=== PATIENT | female | born 1995 | race Caucasian/White ===

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

== ENCOUNTER 2018-06-23 20:48 | Emergency (ER) | payer OTHER ==
[~2018-06-23] VITALS: Ht 180.3 cm; Wt 102.5 kg
[2018-06-23 21:30] VITALS: BP_SYST 140
--- NOTE | 2018-06-23 21:35 | NUR ---
Patient triaged and placed in waiting room. VSS and patient appears in no acute distress at this time. Accompanied by mother, awaiting available bed, and MD notified of need for MSE.
--- NOTE | 2018-06-23 21:40 | NUR ---
Patient reports that rash is painful and maher and also c/o itch. No new laundry products, no new soaps, no changes in diet.
--- NOTE | 2018-06-23 21:45 | NUR ---
ER at bedside examining patient.
--- NOTE | 2018-06-23 21:50 | NUR ---
Pt came to the ED with complaints of rash for 2 days. Reports rash is across her ABD. Pain is 3/10. Used hydrocortisone cream and Tylenol with minimal relief. Reports she is on ABX for a yeast infection. Denies fever, chills, nausea, vomiting, SOB. No other complaints/injuries noted. Will cont. to monitor.
--- NOTE | 2018-06-23 22:00 | NUR ---
Pt resting comfortably in bed with Mom at bedside.
[2018-06-23] MEDS ORDERED: KETOROLAC TROMETHAMINE 60 MG/2 ML VIAL IM ONE (22:45)
[2018-06-23 23:02] VITALS: BP_SYST 140
--- NOTE | 2018-06-23 23:02 | NUR ---
Patient given written and verbal discharge instructions and verbalizes understanding. ER MD Dr. Woo discussed with patient the results and treatment provided. Patient in stable condition. ID arm band removed. Rx of zovirax, acyclovir, tramadol and motrin given. Patient educated on pain management and to follow up with PMD. Pain Scale 0/10. Opportunity for questions provided and answered. Medication side effect fact sheet provided.
== END 2018-06-23 23:02 | disposition home or self-care (01) ==
LOC: SED 20:48
DX: B02.9 Zoster without complications (principal)
CPT/HCPCS: 96372; 99283; J1885

== ENCOUNTER 2018-11-09 18:23 | Emergency (ER) | payer OTHER ==
[~2018-11-09] VITALS: Ht 177.8 cm; Wt 97.1 kg
[2018-11-09 19:56] VITALS: BP_SYST 121
[2018-11-10 00:45] VITALS: BP_SYST 124
== END 2018-11-10 00:45 | disposition home or self-care (01) ==
LOC: SED 18:23
DX: A38.9 Scarlet fever, uncomplicated (principal)
CPT/HCPCS: 99283

== ENCOUNTER 2018-11-12 09:10 | Emergency (ER) | payer OTHER ==
[~2018-11-12] VITALS: Ht 177.8 cm; Wt 97.5 kg
[2018-11-12 09:16] VITALS: BP_SYST 118
--- NOTE | 2018-11-12 09:22 | NUR ---
Patient to ER bed 3 to gown for evaluation. Side rails up. Report given to Enma LORENZO.
--- NOTE | 2018-11-12 09:29 | NUR ---
Pt arrives with a generaized bright red rash. Pt reports being treated with PCN for scarlet fever. Stated that the rash became worse after taking the PCN. No other c/o at the moment.
--- NOTE | 2018-11-12 09:32 | NUR ---
ER at bedside examining patient.
[2018-11-12 10:10] VITALS: BP_SYST 118
--- NOTE | 2018-11-12 10:11 | NUR ---
Patient given written and verbal discharge instructions and verbalizes understanding. ER MD discussed with patient the results and treatment provided. Patient in stable condition. ID arm band removed. IV catheter removed intact and dressing applied, no active bleeding. Rx of Zithromax and Atarax given. Patient educated on pain management and to follow up with PMD. Pain Scale 0/10 . Opportunity for questions provided and answered. Medication side effect fact sheet provided. Addendum: 11/12/18 at 1012 by [email or web address] rx for Prednisone also given.
== END 2018-11-12 10:11 | disposition home or self-care (01) ==
LOC: SED 09:10
DX: L27.0 Generalized skin eruption due to drugs and medicaments taken internally (principal)
CPT/HCPCS: 99283

== ENCOUNTER 2020-12-15 17:16 | Observation (INO) | payer OTHER ==
[~2020-12-15] VITALS: Ht 180.3 cm; Wt 97.5 kg
== END 2020-12-15 19:15 | disposition home or self-care (01) ==
LOC: SPU 17:16
PROVIDERS: ADMIT Specialist; ATTEND Specialist
DX: O26.893 Other specified pregnancy related conditions, third trimester (principal); R10.9 Unspecified abdominal pain; O36.8130 Decreased fetal movements, third trimester, not applicable or unspecified; Z3A.30 30 weeks gestation of pregnancy; Z88.0 Allergy status to penicillin; Z79.899 Other long term (current) drug therapy
CPT/HCPCS: 76819; G0378; 59025

== ENCOUNTER 2021-01-01 10:54 | Observation (INO) | payer OTHER ==
[~2021-01-01] VITALS: Ht 180.3 cm; Wt 114.3 kg
[2021-01-01 11:01] VITALS: BP_SYST 130
[2021-01-01] MEDS ORDERED: ACETAMINOPHEN 325 MG TABLET PO ONE ×2 (11:15→16:30)
[2021-01-01 11:29] VITALS: BP_SYST 117
== END 2021-01-01 18:45 | disposition home or self-care (01) ==
LOC: EDSTATUS 10:54 → SED 10:54 → EDSTATUS 12:04 → SPU 12:14
PROVIDERS: ADMIT Specialist; ATTEND Specialist
DX: O9A.213 Injury, poisoning and certain other consequences of external causes complicating pregnancy, third trimester (principal); S09.90XA Unspecified injury of head, initial encounter; S30.0XXA Contusion of lower back and pelvis, initial encounter; O36.8130 Decreased fetal movements, third trimester, not applicable or unspecified; Z3A.33 33 weeks gestation of pregnancy; Z88.0 Allergy status to penicillin; W01.10XA Fall on same level from slipping, tripping and stumbling with subsequent striking against unspecified object, initial encounter; Y93.E1 Activity, personal bathing and showering; Y92.89 Other specified places as the place of occurrence of the external cause
CPT/HCPCS: 99284; G0378

== ENCOUNTER 2021-01-28 13:16 | Observation (INO) | payer OTHER ==
[~2021-01-28] VITALS: Ht 180.3 cm; Wt 117.0 kg
== END 2021-01-28 14:24 | disposition home or self-care (01) ==
LOC: SPU 13:16 → UNDOADMOB 13:16
PROVIDERS: ADMIT Specialist; ATTEND Specialist
DX: O36.8130 Decreased fetal movements, third trimester, not applicable or unspecified (principal); Z3A.37 37 weeks gestation of pregnancy; Z88.0 Allergy status to penicillin
CPT/HCPCS: 59025; 81002; G0378

== ENCOUNTER 2021-01-31 15:17 | Inpatient (IN) | payer OTHER, SELFPAY ==
[~2021-01-31] VITALS: Ht 180.3 cm; Wt 117.0 kg
[2021-02-02] MEDS ORDERED: TERBUTALINE SULFATE 1 MG/ML VIAL SUBCUT ONE (05:45)
[2021-02-02] MEDS ORDERED: OXYTOCIN/0.9 % SODIUM CHLORIDE 1,000 ML IV SCH (05:45)
[2021-02-02] MEDS ORDERED: DINOPROSTONE 10 MG SUPP VG ONE (05:45)
[2021-02-02 06:19] VITALS: BP_SYST 121
[2021-02-02] MEDS: LR 1,000 ML IV SCH ×2 (06:27→22:34)
[2021-02-02 07:01] LABS: BASOPHILS % (AUTO) 0.3 % (0.0-2.0); EOSINOPHILS # (AUTO) 0.1 K/uL (0.0-0.4); EOSINOPHILS % (AUTO) 1.1 % (0.0-4.0); HEMOGLOBIN 9.9 g/dL (12.0-16.0); LYMPHOCYTES # (AUTO) 1.8 K/uL (1.0-5.5); LYMPHOCYTES % (AUTO) 16.9 % (20.5-51.5); MEAN CORPUSCULAR HEMOGLOBIN 28 pg (27-31); MEAN CORPUSCULAR HGB CONC 35 % (32-36); MEAN CORPUSCULAR VOLUME 80 fL (79.0-98.0); MONOCYTES # (AUTO) 0.9 K/uL (0.0-1.0); NEUTROPHILS % (AUTO) 73.7 % (40.0-70.0); PLATELET COUNT (AUTO) 299 K/uL (130-430); RED CELL DISTRIBUTION WIDTH 12.6 % (9.0-15.0); WHITE BLOOD COUNT (AUTO) 10.9 K/uL (4.8-10.8)
[2021-02-02] MEDS: NALBUPHINE HCL 10 MG/ML AMP IVP PRN (19:59)
[2021-02-03] MEDS: LR 1,000 ML IV SCH
[2021-02-03] MEDS: NALBUPHINE HCL 10 MG/ML AMP IVP PRN ×2 (09:38→22:28)
[2021-02-03] MEDS: MISOPROSTOL 100 MCG TABLET (CYTOTEC) PO SCH ×2 (18:59→23:05)
[2021-02-04] MEDS: MISOPROSTOL 100 MCG TABLET (CYTOTEC) PO SCH (03:04)
[2021-02-04] MEDS: NALBUPHINE HCL 10 MG/ML AMP IVP PRN (03:18)
[2021-02-04] MEDS: LR 1,000 ML IV SCH ×3 (06:33→12:50)
[2021-02-04] MEDS ORDERED: DINOPROSTONE 10 MG SUPP VG ONE (07:26)
[2021-02-04] MEDS ORDERED: LR 1,000 ML IV SCH ×2 (12:15→13:15)
[2021-02-04] MEDS ORDERED: CLINDAMYCIN 900 mg/50mL D5W 50 ML IV ONE (12:15)
[2021-02-04] MEDS ORDERED: ALFENTANIL HCL 1000 MCG/2 ML AMP IVP ONE (13:07)
[2021-02-04] MEDS ORDERED: NS 1000 ML IV.SOLN IV ONE (13:07)
[2021-02-04] MEDS ORDERED: ONDANSETRON HCL 4 MG/2 ML VIAL IVP ONE (13:07)
[2021-02-04] MEDS ORDERED: ePHEDrine sulfate 50 MG/ML VIAL IVP ONE (13:07)
[2021-02-04] MEDS ORDERED: OXYTOCIN 10 UNIT/ML VIAL IV ONE (13:07)
[2021-02-04] MEDS ORDERED: DEXAMETHASONE SOD PHOSPHATE 4 MG/ML VIAL IVP ONE (13:07)
[2021-02-04] MEDS ORDERED: LR 1,000 ML IV.SOLN IV ONE (13:07)
[2021-02-04] MEDS ORDERED: MORPHINE SULFATE 10 MG/ML VIAL IVP ONE (13:07)
[2021-02-04] MEDS ORDERED: METHYLERGONOVINE MALEATE 0.2 MG/ML AMP ONE (13:14)
[2021-02-04] MEDS ORDERED: HYDROcodone/ACETAMIN 5-325 MG TAB (NORCO/ VICODIN) PO PRN (13:15)
[2021-02-04] MEDS ORDERED: TEMAZEPAM 15 MG CAPSULE PO PRN (13:15)
[2021-02-04] MEDS ORDERED: OXYCODONE/ACETAMINOPHEN 5-325 TABLET PO PRN (13:15)
[2021-02-04] MEDS ORDERED: ANUSOL 1 EA SUPP.RECT (PREPARATION H) RC PRN (13:15)
[2021-02-04] MEDS ORDERED: MEASLES,MUMPS&RUBELLA VACC/PF 12500 UNIT/0.5 ML VIAL SUBQ PRN (13:15)
[2021-02-04] MEDS ORDERED: BISACODYL 10 MG/SUPPOSITORY RC PRN (13:15)
[2021-02-04] MEDS ORDERED: OXYCODONE/ACETAMINOPHEN *10*mg/325 mg TABLET PO PRN (13:15)
[2021-02-04] MEDS ORDERED: RHO(D) IMMUNE GLOBULIN/MALTOSE 1500 UNITS/1.3 ML (WINHRO) IM PRN (13:15)
[2021-02-04] MEDS ORDERED: LANOLIN 7 GM OINT. TP PRN (13:15)
[2021-02-04] MEDS ORDERED: NALOXONE HCL 0.4 MG/ML AMP (NARCAN) IVP PRN (13:15)
[2021-02-04] MEDS ORDERED: DIPH-TET-PERTUS Vaccine 0.5 ML VIAL (ADACEL) I.M. PRN (13:15)
[2021-02-04] MEDS ORDERED: DIPHENHYDRAMINE INJ 50 MG/ML VIAL IM PRN (14:45)
[2021-02-04] MEDS ORDERED: ONDANSETRON HCL 4 MG/2 ML VIAL IVP PRN (14:45)
[2021-02-04 14:58] VITALS: BP_SYST 117
[2021-02-04] MEDS ORDERED: MEPERIDINE HCL/PF 25 MG/ML DISP.SYRIN IVP PRN (17:30)
[2021-02-04] MEDS: CLINDAMYCIN 600 MG in NS 50 ML IV SCH ×3 (17:42→23:54)
[2021-02-04] MEDS ORDERED: KETOROLAC TROMETHAMINE 30 MG VIAL IVP PRN (17:45)
[2021-02-04] MEDS ORDERED: CLINDAMYCIN 600 MG in NS 50 ML IV SCH (18:00)
[2021-02-04] MEDS: OXYTOCIN/0.9 % SODIUM CHLORIDE 1,000 ML IV SCH (20:48)
[2021-02-04] MEDS ORDERED: SENNOSIDES/DOCUSATE SODIUM 1 TAB TABLET(SENOKOT-S) PO SCH (21:00)
[2021-02-04] MEDS: KETOROLAC TROMETHAMINE 30 MG VIAL IVP SCH (23:49)
[2021-02-05] MEDS: OXYTOCIN/0.9 % SODIUM CHLORIDE 1,000 ML IV SCH (05:10)
[2021-02-05] MEDS: KETOROLAC TROMETHAMINE 30 MG VIAL IVP SCH ×3 (05:36→17:45)
[2021-02-05] MEDS: CLINDAMYCIN 600 MG in NS 50 ML IV SCH ×2 (05:38→12:14)
[2021-02-05 07:51] LABS: BASOPHILS % (AUTO) 0.2 % (0.0-2.0); EOSINOPHILS % (AUTO) 0.2 % (0.0-4.0); HEMATOCRIT 27.5 % (36-48); HEMOGLOBIN 9.2 g/dL (12.0-16.0); LYMPHOCYTES # (AUTO) 1.5 K/uL (1.0-5.5); LYMPHOCYTES % (AUTO) 9.4 % (20.5-51.5); MEAN CORPUSCULAR HEMOGLOBIN 27 pg (27-31); MEAN CORPUSCULAR HGB CONC 33 % (32-36); MEAN CORPUSCULAR VOLUME 81 fL (79.0-98.0); MONOCYTES # (AUTO) 1.4 K/uL (0.0-1.0); MONOCYTES % (AUTO) 8.5 % (1.7-9.3); NEUTROPHILS # (AUTO) 13.5 K/uL (1.8-7.7); NEUTROPHILS % (AUTO) 81.7 % (40.0-70.0); PLATELET COUNT (AUTO) 295 K/uL (130-430); RED BLOOD CELL COUNT(AUTO) 3.38 MIL/uL (4.2-6.2); RED CELL DISTRIBUTION WIDTH 12.9 % (9.0-15.0); WHITE BLOOD COUNT (AUTO) 16.5 K/uL (4.8-10.8)
[2021-02-05] MEDS: DOCUSATE SODIUM 100 MG CAPSULE PO SCH ×2 (12:13→20:59)
[2021-02-05] MEDS: SIMETHICONE 80 MG TAB.CHEW PO PRN (17:45)
[2021-02-05] MEDS: IBUPROFEN 600 MG TABLET PO SCH (23:38)
[2021-02-06] MEDS: IBUPROFEN 600 MG TABLET PO SCH ×2 (06:06→12:10)
[2021-02-06] MEDS: SIMETHICONE 80 MG TAB.CHEW PO PRN (10:44)
[2021-02-06] MEDS: DOCUSATE SODIUM 100 MG CAPSULE PO SCH (10:45)
[2021-02-07 21:06] LABS: FTA-Ab (T PALLIDUM) Non Reactive (Non Reactive)
== END 2021-02-06 15:53 | disposition home or self-care (01) | DRG 788 ==
LOC: SPU 02-02 05:35
PROVIDERS: ADMIT Specialist; ATTEND Specialist
PROC: 3E033VJ Introduction of Other Hormone into Peripheral Vein, Percutaneous Approach (ICD-10-PCS; 2021-02-04)
PROC: 3E0P7VZ Introduction of Hormone into Female Reproductive, Via Natural or Artificial Opening (ICD-10-PCS; 2021-02-04)
PROC: 10D00Z1 Extraction of Products of Conception, Low, Open Approach (ICD-10-PCS; principal; 2021-02-04 13:47)
PROC: 3E0234Z Introduction of Serum, Toxoid and Vaccine into Muscle, Percutaneous Approach (ICD-10-PCS; 2021-02-05)
DX: O36.8130 Decreased fetal movements, third trimester, not applicable or unspecified (principal); O61.9 Failed induction of labor, unspecified; O33.9 Maternal care for disproportion, unspecified; O62.2 Other uterine inertia; Z20.822 Contact with and (suspected) exposure to COVID-19; Z37.0 Single live birth; Z3A.38 38 weeks gestation of pregnancy; Z23 Encounter for immunization
CPT/HCPCS: 36415; 81002; 85025; 86592; 86780; 86870; 86886; 86900; 86901; 94760; J1100; J1885; J2175; J2210; J2270; J2300; J2405; J2590; J2790; J3490; J7030; J7060; J7120

== ENCOUNTER 2022-05-15 06:27 | Emergency (ER) | payer OTHER, MEDICAID ==
[~2022-05-15] VITALS: Ht 180.3 cm; Wt 98.0 kg
[2022-05-15 06:45] VITALS: BP_SYST 108
[2022-05-15 08:05] VITALS: BP_SYST 135
== END 2022-05-15 08:06 | disposition home or self-care (01) ==
LOC: SED 06:27
DX: O20.0 Threatened abortion (principal); Z3A.14 14 weeks gestation of pregnancy; Z88.0 Allergy status to penicillin; Z79.899 Other long term (current) drug therapy
CPT/HCPCS: 99281